=== PATIENT | female | born 1985 | race Caucasian/White ===

== ENCOUNTER → 2017-05-20 | Outpatient (CLI) | payer OTHER | LOC: MC.RAD 09:30 | DX: N63.24 Unspecified lump in the left breast, lower inner quadrant (principal); R92.2 Inconclusive mammogram ==

== ENCOUNTER 2020-06-06 04:38 | Inpatient (IN) | payer OTHER ==
[2020-06-06] VITALS (51 sets, daily range): BP systolic 101–168; BP diastolic 55–785; PULSE 67–108; TEMP 98–98.9
[~2020-06-06] VITALS: Ht 152.4 cm; Wt 80.0 kg
--- NOTE | 2020-06-06 04:50 | NUR ---
0450 G3 L0 39.6 WEEK GEST TO LR5 WITH C/O SROM AT 0300 AND CONTRACTIONS STARTED IMMEDIATELY AFTER WATER BROKE. SVE WITH NO FLUID NOTED BUT THICK YELLOW MUCOUS. AMNIOTRACE POSITIVE. /-2. NO BOW FELT ON SVE. ADM ASSESSMENT COMPLETED. DR CASTAÑEDA CALLED IN WHILE PT BEING ADMITTED AND CHARGE NURSE GAVE REPORT TO HIM. ORDER RECEIVED TO ADM AND EPID OK.
[2020-06-06] MEDS ORDERED: PRENATAL TABLET PO (05:05)
[2020-06-06] MEDS ORDERED: CLARITIN 1010 MG/TAB PO (05:05)
[2020-06-06] MEDS ORDERED: MASON NATURAL2000 IU PO (05:06)
--- NOTE | 2020-06-06 05:50 | NUR ---
0550 IV STARTED AND LAB DRAWN. PERMITS SIGNED. BECOMING MORE UNCOMFORTABLE WITH CONTRACTIONS.
[2020-06-06 06:33] LABS: BASO # 0.1 (0.0-0.2); BASO % 0.4 % (0.0-2.0); EOS # 0.2 (0.0-0.7); EOS % 1.2 % (0-4.0); GRAN # 12.9 (1.4-6.5); HEMATOCRIT 39.1 % (37.0-47.0); HEMOGLOBIN 12.9 g/dl (12.5-16.0); LYMPH # 1.9 (1.2-3.4); LYMPH % 11.7 % (20.0-51.0); MEAN CELL VOLUME 87 fl (80.0-100.0); MEAN CORPUSCULAR HEMOGLOBIN 29 pg (27.0-31.0); MEAN CORPUSCULAR HGB CONC 33 g/dl (33.0-37.0); MEAN PLATELET VOLUME 10.6 fl (7.4-10.4); MONO # 1.1 (0.1-0.6); MONO % 6.5 % (1.7-9.3); PLATELET COUNT 244 K/mm3 (130-400); RED BLOOD COUNT 4.49 M/mm3 (4.10-5.30); REDCELL DISTRIBUTION WIDTH-CV 13.4 % (11.5-14.5)
--- NOTE | 2020-06-06 07:35 | NUR ---
Dr. Coe on unit. Reviews FHR strip. Introduces himself to pt. No new orders at this time.
--- NOTE | 2020-06-06 09:57 | NUR ---
SVE per this RN /-2. No change since last SVE. Per provider, pitocin started at 2mU. Pt agrees to POC. Denies covid test.
--- NOTE | 2020-06-06 11:21 | NUR ---
Late deceleration noted. RN at bedside. SVE per this RN /-2. FHR did not recover with SS. Pitocin shut off. Pt repositioned LL. LR bolus infusing. Pulse ox applied to differentiate MHR v. FHR. 1124-FHR returns to 125 baseline. Late deceleration noted after ctx. O2 applied via simple mask at 10L. 1128-FHR returned to 150-155 baseline. RN remaines at bedside. Pt verbalizes POC. No questions or concerns at this time.
--- NOTE | 2020-06-06 14:00 | NUR ---
BALJEETE per Dr. Coe /-2. Discussed probability of c/s. Pt opts for primary c/s due to failure to progress. 1407-Pt prepped for OR and taken of EFM.
[2020-06-07 03:30] VITALS: BP 101/77; PULSE 90; TEMP 98.3
[2020-06-07 06:56] VITALS: BP 118/73; PULSE 85; TEMP 97.8
[2020-06-07 10:19] VITALS: BP 113/63; PULSE 83; TEMP 98.2
[2020-06-07 14:53] VITALS: BP 114/67; PULSE 85; TEMP 98.3
[2020-06-07 22:00] VITALS: BP 128/83; PULSE 92; TEMP 98.8
[2020-06-08 07:31] VITALS: BP 134/84; PULSE 93; TEMP 98
[2020-06-08] MEDS ORDERED: IBU800 M1 PO (10:31)
[2020-06-08] MEDS ORDERED: PERCOCET 325 MG1 TA2 PO (10:32)
[2020-06-08 20:30] VITALS: BP 127/72; PULSE 90; TEMP 98.3
[2020-06-09 07:27] VITALS: BP 118/89; PULSE 84; TEMP 97.9
--- NOTE | 2020-06-09 09:28 | NUR ---
Initial visit; Parents thanked for offering congratulations and God's blessings for the of their son. thanked family for choosing [facility]. thanked both Alexandr Holliday for serving our country and Aimee for doing the same.
== END 2020-06-09 15:30 | disposition home or self-care (01) | DRG 788 ==
LOC: LDRO 04:38 → LDR 05:03 → LDRO 05:29 → LDR 05:30 → OB 15:30
PROVIDERS: ADMIT Obstetrics & Gynecology
PROC: 10D00Z1 Extraction of Products of Conception, Low, Open Approach (ICD-10-PCS; principal; 2020-06-06)
DX: O62.0 Primary inadequate contractions (principal); Z3A.39 39 weeks gestation of pregnancy; Z37.0 Single live birth; O69.81X0 Labor and delivery complicated by cord around neck, without compression, not applicable or unspecified; O77.0 Labor and delivery complicated by meconium in amniotic fluid; O32.8XX0 Maternal care for other malpresentation of fetus, not applicable or unspecified
CPT/HCPCS: J0690; J1885; J2175; J2370; J2400; J2405; J2550; J2590; J2795; J7120